=== PATIENT | male | born 1950 | race Caucasian/White ===

== ENCOUNTER 2017-11-29 14:40 | Emergency (ER) | payer OTHER ==
[~2017-11-29] VITALS: Ht 167.6 cm; Wt 92.1 kg
[2017-11-29] MEDS ORDERED: DIOVAN HCT 3201 EACH (15:07)
[2017-11-29] MEDS ORDERED: AZELASTINE137 MCG/0. (15:08)
[2017-11-29] MEDS ORDERED: ZYRTEC10 MG (15:08)
[2017-11-29] MEDS ORDERED: MONTELUKAST SOD10 MG (15:08)
[2017-11-29] MEDS ORDERED: FLOVENT DISKUS50 MCG (15:09)
[2017-11-29] MEDS ORDERED: ARTHROTEC 75 M1 EACH (15:09)
== END 2017-11-29 18:55 | disposition home or self-care (01) ==
LOC: ER 14:40
DX: M79.671 Pain in right foot (principal)